=== PATIENT | male | born 1995 | race Two or more races ===

== ENCOUNTER 2019-12-07 02:21 | Emergency (ER) | payer OTHER ==
[~2019-12-07] VITALS: Ht 182.9 cm; Wt 77.1 kg
[2019-12-07] MEDS ORDERED: TETANUS-DIPTH-ACEL PERTUSSIS 0.5ML SYR Tdap IM ONE (03:30)
[2019-12-07] MEDS ORDERED: cefTRIAXone 1GM/50ML D5W 50 ML IV ONE (03:30)
[2019-12-07] MEDS ORDERED: LIDOCAINE 1% HCL (LOCAL ANESTH.) INJ 20ML MDV ONE (05:46)
[2019-12-07 05:48] VITALS: BP 146/89
[2019-12-07] MEDS ORDERED: NEOMYCIN-BACITRACIN-POLYM 15GM TOP OINT TOP SCH (06:15)
[2019-12-07] MEDS ORDERED: NEOMYCIN-BACITRACIN-POLYM UNITDOSE PKG TOP OINT TOP ONE (06:29)
[2019-12-07] MEDS ORDERED: BACITRACIN TOP OINT 1 UD PKG TOP ONE ×2 (06:30→06:45)
[2019-12-07] MEDS: NEOMYCIN-BACITRACIN-POLYM UNITDOSE PKG TOP OINT TOP ONE ×2 (06:54→06:55)
== END 2019-12-07 07:14 | disposition home or self-care (01) ==
LOC: EDBD 02:21 → ER 02:26
DX: S01.01XA Laceration without foreign body of scalp, initial encounter (principal); S16.1XXA Strain of muscle, fascia and tendon at neck level, initial encounter; V49.49XA Driver injured in collision with other motor vehicles in traffic accident, initial encounter; Y93.I9 Activity, other involving external motion; Y92.488 Other paved roadways as the place of occurrence of the external cause; Y99.8 Other external cause status
CPT/HCPCS: 70450; 71045; 72125; 90471; 90715; 96365; 99285; J0696; J2001

== ENCOUNTER 2019-12-09 15:49 | Emergency (ER) | payer SELFPAY ==
[~2019-12-09] VITALS: Ht 185.4 cm; Wt 97.5 kg
[2019-12-09 16:28] VITALS: BP 126/87
== END 2019-12-09 16:49 | disposition left against medical advice (07) ==
LOC: ER 15:49
DX: Z48.01 Encounter for change or removal of surgical wound dressing (principal); Z53.21 Procedure and treatment not carried out due to patient leaving prior to being seen by health care provider